=== PATIENT | male | born 1980 | race Caucasian/White ===

== ENCOUNTER 2018-04-15 13:55 | Emergency (ER) | payer SELFPAY ==
[~2018-04-15] VITALS: Ht 170.2 cm; Wt 74.4 kg
[2018-04-15] MEDS ORDERED: ERYTHROMYC1 APPLICAT LEFT EYE (15:15)
[2018-04-15 15:33] VITALS: BP 115/67
== END 2018-04-15 15:33 | disposition home or self-care (01) ==
LOC: EME 13:55 → EXP 13:55
DX: T15.02XA Foreign body in cornea, left eye, initial encounter (principal); X58.XXXA Exposure to other specified factors, initial encounter; Y93.89 Activity, other specified; Y99.0 Civilian activity done for income or pay; F17.210 Nicotine dependence, cigarettes, uncomplicated
CPT/HCPCS: 99281; 99283